=== PATIENT | female | born 1940 | race Caucasian/White ===

== ENCOUNTER 2017-01-24 11:03 | Emergency (ER) | payer MEDICARE ==
--- NOTE | 2017-01-24 12:46 | RAD ---
LEFT ANKLE 3 VIEWS: HISTORY: Transferring to wheelchair and felt a pop in her ankle and fell to floor. COMPARISON: None. FINDINGS: There is extensive bimalleolar edema. There is an abnormal lucency of the distal fibula, although o nly seen on 1 view. Small dorsal calcaneal spur and small plantar calcaneal spur. IMPRESSION: 1. Bimalleolar edema suggesting a sprain. 2. Abnormal obliquely oriented lucency of the distal fibula, although only seen on 1 view with the margin somewhat sclerotic. This could be sequelae of prior healed fracture. 3. Correlation for focal pain of the distal fibula. POS: OFF
== END 2017-01-24 12:30 | disposition home or self-care (01) ==
LOC: ERS 11:03
DX: S93.402A Sprain of unspecified ligament of left ankle, initial encounter (principal); S86.012A Strain of left Achilles tendon, initial encounter; I48.91 Unspecified atrial fibrillation; E78.5 Hyperlipidemia, unspecified; I10 Essential (primary) hypertension; Z86.73 Personal history of transient ischemic attack (TIA), and cerebral infarction without residual deficits; W18.30XA Fall on same level, unspecified, initial encounter